=== PATIENT | male | born 1965 | race Two or more races ===

== ENCOUNTER 2025-06-06 12:10 | Day surgery (SDC) | payer MEDICAID, SELFPAY ==
[2025-06-06] VITALS (16 sets, daily range): BP systolic 136–179; BP diastolic 81–104; PULSE 71–88; RESP 13–27; TEMP 36.3–36.7; O2SAT 92–100; BMI 38.7
[2025-06-06] MEDS: RINGERS LACTATED 500 ML 500 ML 100 ML IV (13:43)
[2025-06-06] MEDS: fentaNYL CIT INJ 50 mCg/ML AMP 2ML (ASD USE ONLY) IVP ×2 (13:43→14:08)
[2025-06-06] MEDS: MIDAZOLAM INJ 1 MG/ML VIAL 2 ML (ASD USE ONLY) 2 MG IVP (13:50)
== END 2025-06-06 15:05 | disposition home or self-care (01) ==
PROVIDERS: Referring Provider Surgery; Visit Provider Surgery
PROC: 0DBE8ZX Excision of Large Intestine, Via Natural or Artificial Opening Endoscopic, Diagnostic (ICD-10-PCS; CPT 45380; principal; 2025-06-06 13:00)
DX: Z12.11 Encounter for screening for malignant neoplasm of colon (principal); E66.9 Obesity, unspecified; I10 Essential (primary) hypertension; F41.9 Anxiety disorder, unspecified; Z79.899 Other long term (current) drug therapy; Z68.35 Body mass index [BMI] 35.0-35.9, adult
CPT/HCPCS: 45385; A4649; J2250; J3010; J7120